=== PATIENT | female | born 1950 | race Caucasian/White ===

== ENCOUNTER 2019-02-08 10:38 | Emergency (ER) | payer MEDICARE, SELFPAY ==
[2019-02-08 10:39] VITALS: BP 132/72; PULSE 92; RESP 16; TEMP 36.2; O2SAT 98; BMI 27.4
--- NOTE | 2019-02-08 10:47 | RAD_ITS ---
STUDY: X-RAY - RIGHT FOOT CLINICAL: Female, 68 years old. Stepped on a needle TECHNIQUE: 3 view(s) of the foot. COMPARISON: None. FINDINGS: Normal talus, calcaneus, and tarsal bones. Normal visualized subtalar, talonavicular, calcaneocuboid, tarsal and tarsometatarsal articulations. Normal metatarsi. Normal metatarsophalangeal joint of the great toe. Normal tibial and fibular sesamoid bones. Normal interphalangeal joint of the great toe. Normal phalanges of the great toe. Normal second through fifth metatarsophalangeal joints. Normal interphalangeal joints and phalanges of the lesser toes. The soft tissue structures are unremarkable. RAD/Foot min 3 Views IMPRESSION: Normal x-ray examination of the foot. No radiopaque foreign body. Electronically Signed: Lionel Ritter MD at 11:22 EDT Tel , Service support ,
--- NOTE | 2019-02-08 11:06 | ED.VIS.GEN ---
History of Present Illness Chief Complaint: Lower Extremity Injury Informant: Patient Onset: Today Current Severity: Moderate Maximum Severity: Moderate Narrative: The patient presents to the emergency department with pain in her right second toe. The patient was recently hospitalized with a femur fracture. She had operative repair. She is been doing well with her rehab. She got out of the shower today and stepped barefoot in her great room. She stepped on a quilting needle. She is concerned that the tip broke off into her foot. She denies other injury. Her tetanus is up-to-date. Prior similar symptoms: No Recent Illness/Hospitalization: Yes Past Medical History - Allergies and Home Meds Allergies/Adverse Reactions: Allergies Sulfa (Sulfonamide Antibiotics) Allergy (Verified 02/08/19 10:38) Ihsan Primary Care Physician: Karan Nash [Primary Care Provider] - Prior records reviewed: Yes Past Medical History: - Smoking Status: Never smoker Review of Systems General: Denies: Chills, Fever, Sweats Eyes: Denies: Visual changes - bilaterally, Diplopia ENT: Denies: Rhinorrhea, Sore throat Cardiovascular: Denies: Chest pain, Palpitations Respiratory: Denies: Dyspnea, Cough, Dyspnea on exertion Gastrointestinal: Denies: Abdominal pain, Nausea, Vomiting, Diarrhea, Melena, Hematochezia Genitourinary: Denies: Dysuria, Hematuria, Frequency Musculoskeletal: Denies: Back pain, Extremity Pain Skin: Denies: Rash, Wounds Neurological: Denies: Headache, Weakness, Numbness Physical Exam Vital Signs/Narrative: Vital Signs Temp Pulse Resp BP Pulse Ox 02/08/19 10:39 97.2 F L 92 16 132/72 H 98 Inital Vital Signs reviewed: Yes General: Well nourished, Well developed, No Acute Distress Head: Normocephalic, Atraumatic Eyes: Perrl, EOMI ENT: Moist mucous membranes, No rhinorrhea Neck: Supple, Nontender Cardiovascular: Regular rate, Regular rhythm, No murmurs Respiratory: No distress, CTA bilaterally, Chest nontender Abdomen: Soft, Nontender, Nondistended, Normal bowel sounds Back: Nontender, Normal Inspection Extremities: No edema, Tenderness Skin: Normal color, No rash Neurological: Alert, Oriented x3, Cranial nerves II-XII grossly intact, Normal Strength, Normal Sensation Psychological: Normal affect, Normal Mood Diagnostic/Tx/Re-eval Clinical Impression(s) from Imaging Studies Foot X-Ray 02/08/19 10:47 IMPRESSION: Normal x-ray examination of the foot. No radiopaque foreign body. Electronically Signed: Lionel Ritter MD at 11:22 EDT Tel , Service support , - Medical Decision Making X-rays were obtained. There is no evidence of retained foreign body. This was a metallic body. At this point, I do not see any foreign body within the foot. I am going to place patient on 3 days of prophylactic Cipro given the puncture. She is safe for outpatient therapy. She is comfortable with this plan of care. Impression 1. Puncture right second toe ED Disposition - Plan for ED Patient: Disposition: Home or Assisted Living Instructions: PUNCTURE WOUND, Foot Prescriptions: Ciprofloxacin [Cipro] 500 mg PO BID #6 tab Prescription Printed Referrals: Karan Nash [Primary Care Provider] -
--- NOTE | 2019-02-08 11:25 | ED.RN ---
DISCHARGE INSTRUCTIONS GIVEN TO AND REVIEWED WITH PATIENT, PATIENT DENIES QUESTIONS OR CONCERNS AND VOICES UNDERSTANDING OF DISCHARGE INSTRUCTIONS. PT TO PRIVATE VEHICLE VIA WHEELCHAIR.
== END 2019-02-08 11:25 | disposition home or self-care (01) ==
LOC: ED 11:24
PROVIDERS: Emergency Provider Emergency Medicine; Family Provider Family Medicine; PCP Family Medicine
DX: S91.139A Puncture wound without foreign body of unspecified toe(s) without damage to nail, initial encounter (principal); W45.0XXA Nail entering through skin, initial encounter; Y92.091 Bathroom in other non-institutional residence as the place of occurrence of the external cause; Y99.9 Unspecified external cause status; Z88.2 Allergy status to sulfonamides
CPT/HCPCS: 73630; 99282

== ENCOUNTER → 2019-04-18 11:08 | Outpatient (CLI) | payer MEDICARE, SELFPAY ==
--- NOTE | 2019-04-18 11:12 | RAD_ITS ---
HISTORY: ARTHRITIS, PAIN, RECENT FALL ADDITIONAL HISTORY: None provided. TECHNIQUE: Right shoulder 4 views Number of images including paperwork: 4 COMPARISON: None FINDINGS: BONES: No acute fracture. JOINTS: No subluxation. Moderate degenerative changes of the acromioclavicular joint. Prominent osteophyte along the inferomedial aspect of the humeral head with apparent mild to moderate degenerative changes of the glenohumeral joint otherwise.. SOFT TISSUES: No distinct foreign body. RAD/Shoulder min 2 Views IMPRESSION: Degenerative changes without acute osseous abnormality. at [id number] Reported and signed by: Gloria Ruth MD Electronically Signed: Gloria Ruth MD at 22:46 EST Tel , Service support ,
== END ==
PROVIDERS: Family Provider Family Medicine; PCP Family Medicine; Referring Provider Family Medicine; Visit Provider Family Medicine
DX: M19.011 Primary osteoarthritis, right shoulder (principal); M19.012 Primary osteoarthritis, left shoulder
CPT/HCPCS: 73030

== ENCOUNTER 2019-05-30 15:00 | Outpatient (RCR) | payer MEDICARE, SELFPAY ==
--- NOTE | 2019-02-05 07:49 | HP.PTEVAL_ITS ---
Patient's Visit Information BELGICA PALMA is a 68 year old F referred to Physical Therapy by Karan Nash with a diagnosis of R femur fracture with nailing.. Date of Evaluation: 02/04/19 Physical Therapist: Carlos Grady DPT - Visit Plan Frequency: 3x /Week Duration: 4-6 Weeks Plan: 1) R LE ROM both active and passive, non forceful. 2) RLE isometrics progressing to concentric exercises as tolerated. 3) gait progression with FWW, will progress to Least restrictive device once physician releases/patient tolerates. 4) functional strengthening as tolerated. 5) ice for pain control, may use vaso (light) for edema control - Subjective Findings: Pt. is here today for her initial evaluation with R femur fx, ~ 2weeks ago when she tripped on her grandchilds booster seat. Pt. had a compount fracture of her R femur. Pt[place] [facility]. Pt. reports having 6/10 pain currently. Prior to this she was indepdent except she does have epilepsy and has some balance issues. Pt. reports not having a siezure in ~1 year, but does report having previous balance issues. Other than that she was totally independent, and walking grandchildren in home, 5 kids. Pt. denies N/T, no fever, chills. Pt. reports sleeping in reclining chair. Pt. has had a previous R femur fx, but was ~30 years ago. Pt. is hopeful to get back to all activities without limitations. - Pain R hip Pain Intensity (Out of 10): 6 Pain Intensity Range: 3, 8 - Objective POSTURE: Pt. has heavy use of FWW. Pt. has increased L lateral lean in stance, but is able to correct, increased pain noted at lateral R thigh. PALPATION: Pt. has tenderness along lateral aspect of thigh. Per nursing her incision was doing well. She had an extensive bandage applied, and therefore I did not remove. Negatve miroslava's sign. NEURO: normal throughout BLEs. Normal sensation, normal DTR. ROM: R hip- flexion 75deg, abd 45deg, ext neutral. R knee 0-0-78deg increased lateral knee pain with increased flexion. MMT: RLE- ankle 5/5 throughout; knee- ext 3+/5, flexion 3+/5; hip- flexion 3+/5 and 3/5, ext 3/5. LLE- ankle 5/5 throughout; knee- ext 5/5, flexion 5-/5; hip- flexion 5-/5, abd 5-/5, ext 5-/5. GAIT: Pt ambulates with step to pattern with decrased L step length. Pt. had increased wt. bearing through her UEs during R stance pha se. Decreased knee flexion during swing phase noted. STAIRS: step to pattern loading LLE only. (managed 4 steps) used BHR. - Goals Goal 1:: Pt. to be I with HEP. Goal Time Frame: 4-6 Weeks Goal 2:: Pt. to have increased R hip ROM to full without increase in symptoms. Goal Time Frame: 4-6 Weeks Goal 3:: Pt. to have increased R knee ROM to full without increase in symptoms. Goal Time Frame: 4-6 Weeks Goal 4:: Pt. to have increased R LE strength increased by 1/2 grade of all effected musculature. Goal Time Frame: 4-6 Weeks Goal 5:: Pt. to ambulate with FWW unlimited distances with normal gait pattern and minimal pain. Goal Time Frame: 4-6 Weeks - Rehabilitation Potential Physical Therapy Diagnosis: Pt. has R femur fracture with subsequent hypombility, increased pain, and decreased strength. Pt. would benefit from PT to increase R hip/ knee ROM, incraesed walking and promote increased RLE strength and functional mobility. Rehabilitation Potential: Excellent - Anticipated Interventions Patient/Client Instruction: Educate patient on: Condition, Plan of Care, Risk Factors, Benefits of Fitness Program For the Purpose of:: To improve decision making, To facilitate caregiver knowledge, To improve self management, To prevent re-injury, To improve ability to perform tasks related to life management, To improve tolerance to ADL's Therapeutic Exercise to Include: Strength training, Power training, Endurance training, Balance training, Body mechanics, Postural training, Flexibilty training, Passive ROM, Active ROM, Dynamic Lumbar Stabilization For the Purpose of:: To decrease pain, To decrease swelling/inflammation, To increase ROM, To improve nutrient delivery to tissue, To increase oxygenation perfusion, To improve muscle performance and motor function, To improve ability to perform ADL's, To improve performance and independence with ADL's, To improve gait and locomotor functions, To improve health of tissue, To decrease soft tissue restriction, To increase flexibility/ROM, To improve endurance, To improve balance Cryotherapy (ice pack, ice massage): Yes Vasopneumatic device: Yes For the Purpose of:: To decrease pain, To decrease swelling/inflammation, To increase ROM, To improve nutrient delivery to tissue, To increase oxygenation perfusion Thank you for the opportunity to evaluate your patient. For Medicare and Medicare HMO plans, please review the plan of care and approve it. It will need to be FAXED BACK to us at [phone] for Medicare purposes. For Medicare only, by signing this I certify the plan of care. Please let me know if there are questions or concerns regarding this plan of care. Physician Signature: Date:
--- NOTE | 2019-03-11 11:03 | HP.PTREVAL ---
Karan Nash, It has been my pleasure to treat BELGICA PALMA over the last 12 visits for R femur fracture with nailing.. Please see the progress note below for an update on the physical therapy plan of care! Subjective: Pt. reports having 2-3/10 pain in her R thigh and in her knee. Pt. is walking much better, but is having some proximial tibia pain as well. Pt. was slowly adding more and more wt. with ambulation. Pt. is still progressing as expected. Pt. reports being 80% better overall. Objective/Function: Pt. is doing well. ROM: 0-0-119deg. knee, ambulation: Pt. is independent with ambulation with FWW. Pt. is progressing with slowly increasing with further Wt bearing. Pt. has improved hip and knee strength. She contiunes to have pain, but has reduced to 3-4/10 pain in her thigh, but is having some in her shini as well. Pt. is pleased thus far. She is to follow up with her physician next week. Plan Plan: POC extended x2 per week for 4 weeks. Goals Goal 1:: Pt. to be I with HEP. Goal Time Frame: 4-6 Weeks Goal Progress: Progressing Goal 2:: Pt. to have increased R hip ROM to full without increase in symptoms. Goal Time Frame: 4-6 Weeks Goal Progress: Progressing Goal 3:: Pt. to have increased R knee ROM to full without increase in symptoms. Goal Time Frame: 4-6 Weeks Goal Progress: Progressing Goal 4:: Pt. to have increased R LE strength increased by 1/2 grade of all effected musculature. Goal Time Frame: 4-6 Weeks Goal Progress: Progressing Goal 5:: Pt. to ambulate with FWW unlimited distances with normal gait pattern and minimal pain. Goal Time Frame: 4-6 Weeks Goal Progress: Progressing Anticipated Interventions Patient/Client Instruction: Educate patient on: Condition, Plan of Care, Risk Factors, Benefits of Fitness Program For the Purpose of:: To improve decision making, To facilitate caregiver knowledge, To improve self management, To prevent re-injury, To improve ability to perform tasks related to life management, To improve tolerance to ADL's Therapeutic Exercise to Include: Strength training, Power training, Endurance training, Balance training, Body mechanics, Postural training, Flexibilty training, Passive ROM, Active ROM, Dynamic Lumbar Stabilization For the Purpose of:: To decrease pain, To decrease swelling/inflammation, To increase ROM, To improve nutrient delivery to tissue, To increase oxygenation perfusion, To improve muscle performance and motor function, To improve ability to perform ADL's, To improve performance and independence with ADL's, To improve gait and locomotor functions, To improve health of tissue, To decrease soft tissue restriction, To increase flexibility/ROM, To improve endurance, To improve balance Cryotherapy (ice pack, ice massage): Yes Vasopneumatic device: Yes For the Purpose of:: To decrease pain, To decrease swelling/inflammation, To increase ROM, To improve nutrient delivery to tissue, To increase oxygenation perfusion Please do not hesitate to contact me at [phone] by phone or if you have questions or concerns regarding this new plan of care! Sincerely, DANA CunninghamT
--- NOTE | 2019-04-10 11:05 | HP.PTREVAL ---
Karan Nash, It has been my pleasure to treat BELGICA PALMA over the last 20 visits for R femur fracture with nailing.. Please see the progress note below for an update on the physical therapy plan of care! Subjective: Pt. reports overall doing 80% better. Pt. did trip at home the other day, but was able to catch her self. Pt. arrives walking with walker, but does not use AD at home. Pt. reports 1/10 pain pre treatment this date. Objective/Function: ROM- R knee 0-0-120. HS length 90deg in 90/90. MMT- ankle 5/5 throughout; knee- ext 5-/5, flexion 5/5; hip- flexion 4/5, abd 4/5, ext 4+/5. Core strenght- poor+. gait: pt. has no issues with FWW, slight antalgic pattern without AD during R stance phase. Pt. has good posture with SPC wtih good hip stability. STAIRS: normal patternm, reciprocal with 2 HR. Pt. has slight antalgic pattern with descending on RLE (loading). FGA wtihout AD . Plan Plan: Pt. to be seen x1 per week for 4 weeks. Focus on gait progression and dynamic balance. Goals Goal 1:: Pt. to be I with HEP. Goal Time Frame: 4-6 Weeks Goal Progress: Goal Met Goal 2:: Pt. to have increased R hip ROM to full without increase in symptoms. Goal Time Frame: 4-6 Weeks Goal Progress: Goal Met Goal 3:: Pt. to have increased R knee ROM to full without increase in symptoms. Goal Time Frame: 4-6 Weeks Goal Progress: Goal Met Goal 4:: Pt. to have increased R LE strength increased by 1/2 grade of all effected musculature. Goal Time Frame: 4-6 Weeks Goal Progress: Goal Met Goal 5:: Pt. to ambulate with FWW unlimited distances with normal gait pattern and minimal pain. (NEW GOAL: Pt. to ambulate with LRD vs no AD unlimited distances without increase in symptoms). Goal Time Frame: 4-6 Weeks Goal Progress: Progressing Goal 6:: Pt. to have FGA 18/30 indicating reduced risk for falls. Anticipated Interventions Patient/Client Instruction: Educate patient on: Condition, Plan of Care, Risk Factors, Benefits of Fitness Program For the Purpose of:: To improve decision making, To facilitate caregiver knowledge, To improve self management, To prevent re-injury, To improve ability to perform tasks related to life management, To improve tolerance to ADL's Therapeutic Exercise to Include: Strength training, Power training, Endurance training, Balance training, Body mechanics, Postural training, Flexibilty training, Passive ROM, Active ROM, Dynamic Lumbar Stabilization For the Purpose of:: To decrease pain, To decrease swelling/inflammation, To increase ROM, To improve nutrient delivery to tissue, To increase oxygenation perfusion, To improve muscle performance and motor function, To improve ability to perform ADL's, To improve performance and independence with ADL's, To improve gait and locomotor functions, To improve health of tissue, To decrease soft tissue restriction, To increase flexibility/ROM, To improve endurance, To improve balance Cryotherapy (ice pack, ice massage): Yes Vasopneumatic device: Yes For the Purpose of:: To decrease pain, To decrease swelling/inflammation, To increase ROM, To improve nutrient delivery to tissue, To increase oxygenation perfusion Please do not hesitate to contact me at [phone] by phone or if you have questions or concerns regarding this new plan of care! Sincerely, Carlos Grady DPT
--- NOTE | 2019-05-16 11:00 | HP.PTREVAL ---
Karan Nash, It has been my pleasure to treat BELGICA PALMA over the last 23 visits for R femur fracture with nailing.. Please see the progress note below for an update on the physical therapy plan of care! Subjective: Pt. tried exercises on her own for 2 weeks. pt. comes in today with reports of increased symptoms at medial thigh. Pt. reports she was walking and standing a lot more of martita and it has been very irritated since. Pt. reports having to take some pain medications. She did not use her cane or walker, I think I should have. She reprots being comliant with some strengthenig, but not much. I was just so busy.' Objective/Function: Pt. had higher levels of pain 5/10 at medial thigh, mid shaft after extended standing and walking over holiday. PT. has good knee strength- 5-/5 throughout; hip- flexion 4+/5, abd 4+/5, ext 4/5. GAIT: Pt. ambulated without AD, but has increased soreness during R stance phase, medial thigh. Pt. has slight antalgic pattern during R stance phase. STAIRS: Pt. has reciprocal pattern with use of B HR. Pt. is able to complete, but does have increased pain with ascnding during R stance phase. FGA Plan Plan: Pt. has higher levels of pain this date. Pt. has decent strength, but does have pain with WBing. I talked to her about no over doing prolonged standing/walking, but to slowing increase. Mentioned taking rest periods or using AD at times. I would like to conitnue to see her with focus on stretching, soft tissue stretching and manual techqniues ( as she still has some tissue masses at mid shaft of femur). Progress standing/walking tolerance as able. Extending POC x1 per week for 4-6 weeks. Goals Goal 1:: Pt. to be I with HEP. Goal Time Frame: 4-6 Weeks Goal Progress: Goal Met Goal 2:: Pt. to have increased R hip ROM to full without increase in symptoms. Goal Time Frame: 4-6 Weeks Goal Progress: Goal Met Goal 3:: Pt. to have increased R knee ROM to full without increase in symptoms. Goal Time Frame: 4-6 Weeks Goal Progress: Goal Met Goal 4:: Pt. to have increased R LE strength increased by 1/2 grade of all effected musculature. Goal Time Frame: 4-6 Weeks Goal Progress: Goal Met Goal 5:: Pt. to ambulate with FWW unlimited distances with normal gait pattern and minimal pain. (NEW GOAL: Pt. to ambulate with LRD vs no AD unlimited distances without increase in symptoms). Goal Time Frame: 4-6 Weeks Goal Progress: Progressing Goal 6:: Pt. to have FGA 18/30 indicating reduced risk for falls. Goal Progress: Progressing Anticipated Interventions Patient/Client Instruction: Educate patient on: Condition, Plan of Care, Risk Factors, Benefits of Fitness Program For the Purpose of:: To improve decision making, To facilitate caregiver knowledge, To improve self management, To prevent re-injury, To improve ability to perform tasks related to life management, To improve tolerance to ADL's Therapeutic Exercise to Include: Strength training, Power training, Endurance training, Balance training, Body mechanics, Postural training, Flexibilty training, Passive ROM, Active ROM, Dynamic Lumbar Stabilization For the Purpose of:: To decrease pain, To decrease swelling/inflammation, To increase ROM, To improve nutrient delivery to tissue, To increase oxygenation perfusion, To improve muscle performance and motor function, To improve ability to perform ADL's, To improve performance and independence with ADL's, To improve gait and locomotor functions, To improve health of tissue, To decrease soft tissue restriction, To increase flexibility/ROM, To improve endurance, To improve balance Cryotherapy (ice pack, ice massage): Yes Vasopneumatic device: Yes For the Purpose of:: To decrease pain, To decrease swelling/inflammation, To increase ROM, To improve nutrient delivery to tissue, To increase oxygenation perfusion Please do not hesitate to contact me at [phone] by phone or if you have questions or concerns regarding this new plan of care! Sincerely, Carlos Grady DPT
== END 2019-05-30 19:00 | disposition home or self-care (01) ==
LOC: PT 15:00
PROVIDERS: Family Provider Family Medicine; PCP Family Medicine; Referring Provider Family Medicine; Visit Provider Family Medicine
DX: S72.301D Unspecified fracture of shaft of right femur, subsequent encounter for closed fracture with routine healing (principal)
CPT/HCPCS: 97110; 97112; 97161; 97530

== ENCOUNTER 2019-08-01 09:00 | Outpatient (RCR) | payer MEDICARE, SELFPAY ==
--- NOTE | 2019-07-22 08:48 | HP.PTEVAL_ITS ---
Patient's Visit Information BELGICA PALMA is a 68 year old F referred to Physical Therapy by Sebas Dukes DO with a diagnosis of R shoulder RTC strain. Date of Evaluation: 07/16/19 Physical Therapist: Carlos Grady DPT - Visit Plan Frequency: 2x /Week Duration: 6 Weeks Plan: Start with AAROM of R shoulder, light strengtheing of R RTC and deltoid. Pec stretching, inferior glides of R GH joint with mobility. May use US and/or ice for pain control. Progress HEP with in painfree motions. - Subjective Subjective: Pt. is here today for her initial evaluation with diagnosis of strain of R RTC. Pt. reports no mech of injury, but did fall on her shoulder a few months ago. Pt. reports having increased pain in her R shoulder for a few months now with no major changes. She denies N/T in either UE. Pt. reports no w eakness, but has increased pain with lifting her arm and carrying any objects. Pt. has tired ice and heat without much change. Pt. has had an Xray showing some arthritis of AC joint and GH joint. Pt. reports pain is at AC joint and lateral shoulder. Pt. has some pain with sleeping on her R side. Pt. is hopeful to reduce her symptoms in order to get back to all recreational activities and ADLs without limitations. - Pain R AC joint Pain Intensity (Out of 10): 3 Pain Intensity Range: 1, 6 R lateral proximal arm Pain Intensity (Out of 10): 3 Pain Intensity Range: 1, 6 - Objective POSTURE: Pt. has slight bilateral anterior shoulders (rounded shoulders), FH posture. Pt. is able to improve with VC/TCing. PALPATION: Pt. has increased tenderness at R AC joint and R subacromial space (laterally). NEURO: Normal throughout BUEs. ROM: Pt. has close to full ROM of B shoulders, except slight reduction in R functional ER and IR. PT. has increased pain with all over head motions and with functional ER/IR worse with IR. MMT: Pt. has 4+/5 strength throughotu RUE. patient had mild increase in symptoms with shoulder flexion and abduction testing. - Special Tests R Shoulder Drop Sign - IS Test: Negative R Shoulder Empty Can - SS: Positive R Shoulder Belly Press - SupScap: Negative R Shoulder Neer - Impingement: Positive R Shoulder Rascon Sourav - Impingement: Positive R Shoulder Biceps Load Test - Labrum: Negative R Shoulder Speeds Test - Labrum/Biceps: Positive R Shoulder O'Briens - SLAP/A-C: Positive R Shoulder AC Resisted - AC: Positive Comments: Increased pain with speeds, empty can (no weakness noted) - Goals Goal 1:: LTG: Pt. to be I with HEP for R shoulder stability and stretching. Goal Time Frame: 4-6 Weeks Goal 2:: STG: Pt. to sleep throughout the night without increase in symptoms. Goal Time Frame: 2-4 Weeks Goal 3:: LTG: Pt. to have increased R shoulder strength by 1/2 grade of all effected musculature. Goal Time Frame: 4-6 Weeks Goal 4:: STG: pt. to have full R shoulder ROM including functional IR/ER withtout increase in symptoms. Goal Time Frame: 2-4 Weeks Goal 5:: LTG: Pt. to complete all ADLs without increase in symptoms. Goal Time Frame: 4-6 Weeks - Rehabilitation Potential Physical Therapy Diagnosis: Pt. has signs and symptoms consistent with R RTC strain. Pt. has decent strength with mild increase in symptoms with ER and shoulder flexion/abduction testing. Pt. did not appear to have any labral issues or signs of RTC tear. Pt. would benefit from mobility, strengthening and joint mobs of R shoulder. Rehabilitation Potential: Excellent - Anticipated Interventions Patient/Client Instruction: Educate patient on: Condition, Plan of Care, Risk Factors, Benefits of Fitness Program For the Purpose of:: To improve health and function, To foster healthy habits, To improve decision making, To facilitate caregiver knowledge, To improve self management, To prevent re-injury, To improve ability to perform tasks related to life management, To improve tolerance to ADL's Therapeutic Exercise to Include: Strength training, Power training, Body mechanics, Postural training, Flexibilty training, Passive ROM, Active ROM, Scapular Strength/Stabilization For the Purpose of:: To decrease pain, To increase ROM, To improve nutrient delivery to tissue, To increase oxygenation perfusion, To improve muscle performance and motor function, To improve ability to perform ADL's, To increase tolerance to activity/condition/position, To improve performance and independence with ADL's, To improve health of tissue, To decrease soft tissue restriction, To increase flexibility/ROM Manual Therapy Techniques to Include: Mobilization, Passive ROM, Soft tissue mobilization For the Purpose of:: To decrease pain, To decrease swelling/inflammation, To increase ROM Cryotherapy (ice pack, ice massage): Yes Ultrasound (thermal/non thermal): Yes For the Purpose of:: To decrease pain, To decrease swelling/inflammation, To increase ROM Thank you for the opportunity to evaluate your patient. For Medicare and Medicare HMO plans, please review the plan of care and approve it. It will need to be FAXED BACK to us at [phone] for Medicare purposes. For Medicare only, by signing this I certify the plan of care. Please let me know if there are questions or concerns regarding this plan of care. Physician Signature: Date:
--- NOTE | 2020-02-04 11:55 | HP.PT.NRP ---
BELGICA PALMA was seen in my office for initial evaluation on 07/16/19. The following Plan of Care was established for this patient: Initial Frequency: 2x /Week Initial Duration: 6 Weeks Patient/Client Instruction: Educate patient on: Condition, Plan of Care, Risk Factors, Benefits of Fitness Program For the Purpose of:: To improve health and function, To foster healthy habits, To improve decision making, To facilitate caregiver knowledge, To improve self management, To prevent re-injury, To improve ability to perform tasks related to life management, To improve tolerance to ADL's Therapeutic Exercise to Include: Strength training, Power training, Body mechanics, Postural training, Flexibilty training, Passive ROM, Active ROM, Scapular Strength/Stabilization For the Purpose of:: To decrease pain, To increase ROM, To improve nutrient delivery to tissue, To increase oxygenation perfusion, To improve muscle performance and motor function, To improve ability to perform ADL's, To increase tolerance to activity/condition/position, To improve performance and independence with ADL's, To improve health of tissue, To decrease soft tissue restriction, To increase flexibility/ROM Manual Therapy Techniques to Include: Mobilization, Passive ROM, Soft tissue mobilization For the Purpose of:: To decrease pain, To decrease swelling/inflammation, To increase ROM Cryotherapy (ice pack, ice massage): Yes Ultrasound (thermal/non thermal): Yes For the Purpose of:: To decrease pain, To decrease swelling/inflammation, To increase ROM This patient was last seen in our office 08/01/19. Pertinent comments regarding their Physical therapy will appear below: Pt. was seen in physical therapy for her R shoulder pain. Pt. has not been seen in severl months and will be DC from PT at this point in time. At this point I will be discontinuing this patient from physical therapy. I would be happy to see this patient again in the future if found appropriate by the physician. Thank you! Carlos Grady, DANAT
== END 2019-08-01 19:00 | disposition home or self-care (01) ==
LOC: PT 09:00
PROVIDERS: PCP Family Medicine; Referring Provider Orthopaedic Surgery; Visit Provider Orthopaedic Surgery
DX: S46.011D Strain of muscle(s) and tendon(s) of the rotator cuff of right shoulder, subsequent encounter (principal)
CPT/HCPCS: 97110; 97161

== ENCOUNTER → 2019-11-04 09:08 | Outpatient (CLI) | payer MEDICARE, SELFPAY ==
--- NOTE | 2019-11-04 09:10 | RAD_ITS ---
STUDY: RIGHT SHOULDER INJECTION REASON FOR EXAM: Female, 68 years old. RT SHOULDER INJECTION, 6CC STEROID INJECTED, 31 SEC FLUORO, 8.08 MGY FLUOROSCOPY TIME (if supplied): ( 31 )seconds TECHNIQUE: Fluoroscopically guided COMPARISON: None. FINDINGS: After informed consent was obtained, the patient was placed on the fluoroscopic table in the supine position. An appropriate site for right shoulder injection was determined using fluoroscopy. The area was prepped and draped in a sterile manner, and 2% Xylocaine was used as local anesthetic. Under fluoroscopic guidance, a 22-gauge spinal needle was advanced into the right shoulder capsule without difficulty and 2 cc of Isovue-300 contrast were administered to ensure needle placement. A 6 mL of Xylocaine and steroid were then advanced into the right shoulder capsule without difficulty. Patient tolerated the procedure well with no immediate complications. RAD/Inj/Asp Mark Anthony Jt Should/Hip/Knee IMPRESSION: Fluoroscopically guided right shoulder injection Electronically Signed: Alton Watson MD at 10:11 EDT , Service support ,
== END ==
PROVIDERS: PCP Family Medicine; Referring Provider Specialist; Visit Provider Specialist
DX: M19.011 Primary osteoarthritis, right shoulder (principal)
CPT/HCPCS: 20610; 77002; Q9967; J0702

== ENCOUNTER → 2020-02-25 12:46 | Outpatient (CLI) | payer MEDICARE, SELFPAY ==
--- NOTE | 2020-02-25 12:50 | CT_ITS ---
CT of the right shoulder without contrast INDICATION: Shoulder pain, arthritis. TECHNIQUE: Multiple thin section axial CT images the right shoulder were obtained without the administration of intravenous contrast and filmed in soft tissue and bone windows. Furthermore, multiple sagittal and coronal reconstructions were performed. Dose limiting techniques were utilized. FINDINGS: No abnormal soft tissue mass, lymphadenopathy, fluid collection. No acute fracture or dislocation. No lytic or blastic lesions. Mild chronic reticular and glenohumeral joint arthrosis. IMPRESSION: Mild glenohumeral and acromioclavicular joint arthrosis. Electronically Signed: Lionel Ritter MD at 9:03 EDT Tel , Service support , CT/Extremity Upper without Contra
== END ==
PROVIDERS: PCP Family Medicine; Referring Provider Specialist; Visit Provider Specialist
DX: M19.011 Primary osteoarthritis, right shoulder (principal)
CPT/HCPCS: 73200

== ENCOUNTER → 2020-03-25 11:42 | Outpatient (CLI) | payer MEDICARE, SELFPAY ==
[2020-03-25 13:20] LABS: Absolute Lymphocyte Count 1.53 X10^3/uL (0.83-4.51); Absolute Neutrophil Count 5.4 X10^3/uL (2.0-7.7); Basophil# 0.02 X10^3/uL; Basophil% 0.3 % (0-1); Eosinophil# 0.13 X10^3/uL; Eosinophils% 1.7 % (0-5); Hematocrit 38.6 % (37-47); Lymphocyte # 1.53 X10^3/ul (4.0); Lymphocyte % 20.3 % (19-41); Mean Corp Hgb Conc 31.1 g/dL (32-36); Mean Corpuscular Hgb 28.2 pg (27.0-32.0); Mean Corpuscular Volume 90.6 fL (81-99); Mean Platelet Vol. 11.9 fl (6.2-12.0); Monocyte# 0.44 X10^3/uL; Monocyte% 5.8 % (0-10); NRBC Flagged by Analyzer 0 % (0-5); Neutrophil # 5.37 X10^3/uL (2.7-7.7); Neutrophil % 71.4 % (47-70); Platelet Count 205 K/mm3 (150-450); RBC Distribution Width CV 14.1 % (11.6-14.6); RBC Distribution Width SD 46.1 fl (35.1-43.9); Red Blood Count 4.26 M/mm3 (4.2-5.4); White Blood Count 7.5 K/mm3 (4.4-11.0)
[2020-03-25 13:49] LABS: AST(SGOT) 24 U/L (15-37); Alanine Aminotransfer ALT/SGPT 37 U/L (13-56); Albumin, Serum 3.7 g/dL (3.2-5.0); Alkaline Phosphatase 90 U/L (45-117); Anion Gap 8 (5-15); BUN 18 mg/dL (7-18); BUN/Creat Ratio 19.4 RATIO (10-20); Calcium,Total 9.9 mg/dL (8.5-10.1); Chloride 106 mmol/L (98-107); Creatinine, Serum 0.93 mg/dL (0.55-1.02); EST Glomerular Filtration Rate 63 mL/min (>60); Est Glom Filt Rate - Afr Amer 77 mL/min (>60); Globulin 3.7 g/dL (2.2-4.2); Glucose 198 mg/dL (74-106); Potassium 3.8 mmol/L (3.5-5.1); Protein, Total 7.4 g/dL (6.4-8.2); Sodium Level 141 mmol/L (136-145)
[2020-03-25 13:51] LABS: Hemoglobin A1c 6.9 % (3.8-5.6)
== END ==
PROVIDERS: PCP Family Medicine; Referring Provider Physician Assistant Surgical; Visit Provider Physician Assistant Surgical
DX: Z01.818 Encounter for other preprocedural examination (principal); Z01.810 Encounter for preprocedural cardiovascular examination; E11.9 Type 2 diabetes mellitus without complications
CPT/HCPCS: 36415; 80053; 83036; 85025

== ENCOUNTER → 2020-11-03 10:21 | Outpatient (CLI) | payer MEDICARE, SELFPAY ==
--- NOTE | 2020-11-03 | LES_PTH ---
PATIENT: BELGICA PALMA LOC: [facility] U#:[id number] AGE/SX: 74/F ROOM: RE11/03/[address]: Dr. Aditya Bhandari, NICK : 1950 BED: DIS: SPEC #: [id number] RECD: 11/03/20 10:02 STATUS: HEATHER ABRIL #: [id number] AYUSH: 11/03/20 00:[address]: Aditya Bhandari DEPT: SURGICAL PATHOLOGY RECD BY: Keyonna Ornelas ENTERED: 11/03/20 10:50 SP TYPE: Lesion OTHR DR: Dr. Karan Nash, DO Tissues: Skin of lip, NOS Procedures: Special Stain Group I Surgery Specimen Level IV GMS Stain (control) HEADER OPERATION: Lower lip PRE-OP DIAGNOSIS: Fibroma TISSUE SUBMITTED: Lower lip MICROSCOPIC DIAGNOSIS Lesion of lower lip, biopsy: Acanthosis with focal ulceration, acute inflammation and early granulation. Negative for fungal organisms. See comment. AM:rebecca 11/04/2020 COMMENT There is no evidence of malignancy. GMS stain with matched control was used in the evaluation of this case. MICROSCOPIC DESCRIPTION Slides are reviewed. GROSS DESCRIPTION Received in fixative is one container labeled with the patient's name and designated lip. The specimen consists of mcleod mucosal tissue measuring 1 x 0.5 cm and up to 0.3 cm in thickness. The specimen is inked, serially sectioned and submitted entirely in one cassette. / SJ:rebecca 11/03/20 TC:2 CPT: 58216, 38738
== END ==
PROVIDERS: PCP Family Medicine; Visit Provider Dentist Oral and Maxillofacial Surgery
DX: K13.0 Diseases of lips (principal)
CPT/HCPCS: 88305; 88312

== ENCOUNTER 2023-11-07 19:40 | Emergency (ER) | payer MEDICARE, SELFPAY ==
[2023-11-07 19:40] VITALS: BP 135/58; PULSE 94; RESP 16; TEMP 36.3; O2SAT 100
--- NOTE | 2023-11-07 20:18 | CT_ITS ---
INDICATION: Closed head injury with loss of consciousness EXAMINATION: CT BRAIN - CT Head or Brain W/O Contrast Injection TECHNIQUE: Multiple axial images were obtained of the head without intravenous contrast. A radiation dose optimization technique was used for this scan. IV Contrast dosage and agent: None. COMPARISON: None. FINDINGS: BRAIN PARENCHYMA: No intra- or extra-axial hemorrhage. No evidence of acute infarct. No intracranial mass or mass effect. There is preservation of the lee/white matter interface. Posterior fossa structures are unremarkable. Volume loss with low attenuation of the periventricular white matter typical of chronic small vessel disease. CSF SPACES: Appropriate for age. No hydrocephalus. Basal cisterns are patent. CALVARIUM, SKULL BASE, PARANASAL SINUSES AND MASTOID AIR CELLS: Scattered minimal mucoperiosteal thickening. No acute fracture. High midline posterior parietal cephalhematoma. CT/Brain/Head without Contrast IMPRESSION: Volume loss with chronic white matter changes. No acute intracranial findings. Electronically Signed: Andrea Pelaez MD at 20:53 EDT ,
[2023-11-07] MEDS: Lidocaine/Epi/Tetracaine 50 ML 1 APPLIC TOPICAL (20:21)
[2023-11-07 20:40] VITALS: BP 146/67; PULSE 94; RESP 19; O2SAT 92
[2023-11-07 21:00] VITALS: BP 120/65; PULSE 97; RESP 18; O2SAT 95
--- NOTE | 2023-11-07 21:01 | EX.ED.GENINJ ---
HPI History of Present Illness Chief Complaint: Fall Detail of Chief Complaint: Patient had mechanical fall striking the back of her head with loss of cons Informant: patient and spouse/S.O. Onset/Context/Timing Onset: Today and Hours Mechanism/Context: Blunt Injury Quality of Pain: Dull and Aching Location: Global Current Severity: Mild Maximum Severity: Moderate Worsened by: Nothing Relieved by: Nothing Associated Symptoms Associated Symptoms: Positive for Loss of consciousness and Amnesia; Negative for Parasthesias, Weakness, Loss of function or Inability to ambulate Length of loss of consciousness: A minute Narrative Narrative: Patient is 71-year-old woman. She is out to speak with neighbor. She was watering grass implants. She fell. Struck the back of her head. She had loss of conscious. She is amnestic. She does report nausea. She does report headache. She is not on antithrombotic or anticoagulant. She denies double vision blurred vision loss of vision. Denies neck pain. Denies paresthesia, anesthesia or motor weakness. She denies cardiac or respiratory symptoms. She denies black or maroon-colored stool. She has no other complaints. There is a keith noted left forehead near the hairline. She states she burned herself with a curling iron. Tetanus Immunization: 5-10 years Prior similar symptoms: No Recent Illness/Hospitalization: No PFSH PFSH Home Medications ?Medication ?Instructions ?Recorded ?Last Taken ?Type ciprofloxacin HCl 500 mg tablet 500 mg PO BID #6 tabs 02/08/19 Unknown Rx Allergy/AdvReac Type Severity Reaction Status Date / Time Sulfa (Sulfonamide Allergy Hives Verified 11/07/23 19:41 Antibiotics) Social History (Updated 11/07/23 @ 21:[address] Alexx Cuadra MD) household members: spouse Smoking Status: Never smoker ROS ROS ED Eyes Eyes: Denies blurry vision, change in vision or other ENT ENT ED: Reports other Details: She denies decreased hearing or ringing in ears. ; Denies ear pain, rhinorrhea or sore throat Cardiovascular Cardiovascular: Reports chest pain Respiratory/Chest Respiratory/Chest: Denies cough, dyspnea or dyspnea on exertion Gastrointestinal Gastrointestinal: Reports nausea; Denies abdominal pain or vomiting Musculoskeletal Musculoskeletal: Denies arthralgias, back pain, myalgias or neck pain Integumentary Reports other Details: Scalp laceration occiput Neurologic Neurologic: Reports headache(s); Denies paresthesias or weakness Endocrine Endocrinology: Denies cold intolerance or heat intolerance Hematologic/Lymphatic Hematologic/Lymphatic: Denies easy bleeding or easy bruising EXAM Physical Exam Const Vital Signs: 11/07/23 19:40 11/07/23 20:13 11/07/23 20:40 Temperature 97.4 F L Temperature Source Temporal Pulse Rate 94 94 Respiratory Rate 16 19 H Respiratory Effort Normal Respiratory Depth Normal Respiratory Pattern Normal Blood Pressure 135/58 H 146/67 H Blood Pressure Mean 83 93 Pulse Ox 100 92 Oxygen Delivery Method Room Air Room Air Positive well nourished and well developed General Appearance ED: well developed and NAD HEENT HEENT Narrative: Scalp laceration occiput with no palpable pression. No clinical signs of basilar skull fracture. No septal deviation hematoma. No hemotympanum. No dental trauma. Burn as noted in the HPI narrative. Eyes PERRL and EOMs intact bilaterally General Eye ED: Yes other Other Details: There is no nystagmus. There is no subconjunctival hemorrhage noted. Neck full ROM Neck Narrative: There is no midline tenderness and full active range of motion. Resp normal respiratory effort and clear to auscultation bilaterally Cardio regular rhythm, S1 normal heart sound, S2 normal heart sound and no murmurs Rate: regular rate GI normal to inspection, nondistended, normoactive bowel sounds, non-distended and no masses Back/Spine normal to inspection and no thoracic nor lumbar tenderness Extremity normal to inspection Neuro oriented x3, CN's II-XII intact bilaterally, moves all extremities, no focal motor deficits and no sensory deficits noted [place] Coma Scale: document GCS findings Spontaneous Obeys Commands Oriented 15 Sensorium / Orientation: alert Deep Tendon Reflexes: Rt Triceps (C7): 2+, Lt Triceps (C7): 2+, Rt Biceps (C5, C6): 2+, Lt Biceps (C5, C6): 2+, Rt Patellar (L4): 2+, Lt Patellar (L4): 2+, Rt Ankle (S1): 2+ and Lt Ankle (S1): 2+ Deep Tendon Reflexes Back: Rt Patellar (L4): 2+, Lt Patellar (L4): 2+, Rt Ankle (S1): 2+ and Lt Ankle (S1): 2+ Plantar Reflex: Downgoing: bilateral Psych mental status grossly normal and thought process normal Skin no rashes or lesions noted, skin turgor normal and no jaundice Skin Narrative: Scalp laceration and burn keith as previously described PROC Procedures Other Procedures Procedure(s): Wound was cleansed. No signs with let. Total of 4 antonino were placed to close the 2.4 cm scalp laceration. MDM MDM MDM Narrative Medical decision making narrative: Per the [place] CT head rule and [place] rule imaging the head is indicated. This was ordered. Per Nexus criteria imaging of the neck is not indicated. Patient's wound was anesthetized with let. [address] were [address] The [address] was reviewed prior to stapling and prior to radiology report. There is no evidence of fracture, subdural, epidural traumatic subarachnoid hemorrhage or intraparenchymal contusion. Awaiting formal read by radiologist. Radiography Diagnostic Testing: Clinical Impression(s) from Imaging Studies Brain CT 11/07/23 20:18 IMPRESSION: Volume loss with chronic white matter changes. No acute intracranial findings. Electronically Signed: Andrea Pelaez MD at 20:53 EDT , Report by radiologist was read. Discharge Plan Triage Chief Complaint: Fall ED Provider: Alexx Cuadra Dx/Rx/DC Orders Clinical Impression: Concussion with loss of consciousness, Laceration of scalp, Injury due to fall Instructions: ED Concussion Prescriptions: No Action ciprofloxacin HCl 500 MG tablet 500 mg PO BID Qty: 6 0RF Primary Care Provider: Karan Nash Referrals: Karan Nash DO [Primary Care Provider] - 10 Day for suture removal Print Language: Setswana Disposition Disposition: Home, Self Care
[2023-11-07 21:26] LABS: Bedside Glucose 107 mg/dL (74-106)
[2023-11-07 21:27] VITALS: BP 120/78; PULSE 71; RESP 16; TEMP 36.6; O2SAT 99
== END 2023-11-07 21:32 | disposition home or self-care (01) ==
PROVIDERS: Emergency Provider Emergency Medicine; PCP Family Medicine; Visit Provider Emergency Medicine
DX: S06.0X9A Concussion with loss of consciousness of unspecified duration, initial encounter (principal); S01.01XA Laceration without foreign body of scalp, initial encounter; W19.XXXA Unspecified fall, initial encounter; R07.9 Chest pain, unspecified
CPT/HCPCS: 12001; 70450; 82962; 99284

== ENCOUNTER 2023-11-14 13:22 | Emergency (ER) | payer MEDICARE, SELFPAY ==
[2023-11-14 13:22] VITALS: BP 111/62; PULSE 89; RESP 14; TEMP 36.8; O2SAT 100
--- NOTE | 2023-11-14 14:54 | ED.RN ---
daughter states i talked to her doctor and she needs to be at a different facility.
== END 2023-11-14 14:54 | disposition left against medical advice (07) ==
LOC: ED 15:16
PROVIDERS: PCP Family Medicine
DX: R79.89 Other specified abnormal findings of blood chemistry (principal)